=== PATIENT | male | born 1985 | race Caucasian/White ===

== ENCOUNTER 2018-10-12 11:21 | Emergency (ER) | payer MEDICAID ==
[~2018-10-12] VITALS: Ht 180.3 cm; Wt 81.0 kg
[2018-10-12 12:00] VITALS: BP 131/81
== END 2018-10-12 12:02 ==
LOC: ER 11:21
DX: Z02.89 Encounter for other administrative examinations (principal); F20.9 Schizophrenia, unspecified; Z56.0 Unemployment, unspecified
CPT/HCPCS: 99283

== ENCOUNTER 2023-08-02 16:48 | Emergency (ER) | payer MEDICAID ==
[~2023-08-02] VITALS: Ht 180.3 cm; Wt 87.7 kg
[2023-08-02 17:37] LABS: BASOPHILS # (AUTO) 0.2 X10'3 (0-0.2); EOSINOPHILS # (AUTO) 0.3 X10'3 (0-0.9); EOSINOPHILS % (AUTO) 2.7 % (0-6); HEMATOCRIT 45.4 % (42.0-52.0); HEMOGLOBIN 15.8 g/dl (14.0-17.9); LYMPHOCYTES # (AUTO) 1.4 X10'3 (1.1-4.8); LYMPHOCYTES % (AUTO) 13.5 % (21-51); MEAN CORPUSCULAR HEMOGLOBIN 32.1 PG (27.0-31.0); MEAN CORPUSCULAR HGB CONC 34.7 g/dL (33.0-36.5); MEAN CORPUSCULAR VOLUME 92.3 FL (78-98); MEAN PLATELET VOLUME 9.1 FL (7.4-10.4); MONOCYTES # (AUTO) 1.3 X10'3 (0-0.9); MONOCYTES % (AUTO) 11.9 % (2-12); NEUTROPHILS # (AUTO) 7.4 X10'3 (1.8-7.7); NEUTROPHILS % (AUTO) 69.9 % (42-75); PLATELET COUNT 283 X10'3 (140-440); RED BLOOD COUNT 4.92 X10'6 (4.70-6.10); RED CELL DISTRIBUTION WIDTH 12.7 % (11.5-14.5); WHITE BLOOD COUNT 10.6 X10'3 (4.5-11.0)
[2023-08-02 17:42] LABS: ALANINE AMINOTRANSFERASE 39 U/L (12-78); ALBUMIN 3.8 G/DL (3.4-5.0); ALKALINE PHOSPHATASE 105 IU/L (46-116); ANION GAP 13 (8-16); ASPARTATE AMINO TRANSFERASE 19 U/L (10-37); BILIRUBIN,TOTAL 0.3 MG/DL (0.1-1.0); BLOOD UREA NITROGEN 10 MG/DL (7-18); BUN/CREATININE RATIO 11.5 (10.0-20.0); CALCIUM 8.8 MG/DL (8.5-10.1); CHLORIDE 105 MMOL/L (99-107); CREATININE 0.87 MG/DL (0.60-1.10); GLUCOSE 108 MG/DL (70-104); POTASSIUM 4.1 MMOL/L (3.5-5.1); SODIUM 141 MMOL/L (135-145); TOTAL CARBON DIOXIDE 22.8 MMOL/L (24-32); TOTAL PROTEIN 7.5 G/DL (6.4-8.2); eGFR > 90 ML/MIN
[2023-08-02 17:46] LABS: ETHANOL < 10 MG/DL (<10)
[2023-08-02 18:27] LABS: THYROID STIMULATING HORMONE 1.63 ulU/ml (0.34-4.50)
--- NOTE | 2023-08-02 18:33 | NUR ---
The patient brought in via EMS from [facility]. He was released from [facility] earlier in the day. He is LPS conserved. He has a history of schizophrenia. He is pleasant and cooperative.
[2023-08-02 18:53] LABS: URINE AMPHETAMINE SCREEN NEGATIVE (Neg); URINE BARBITUATE SCREEN NEGATIVE (Neg); URINE BENZODIAZEPINES SCREEN NEGATIVE (Neg); URINE CANNABINOID SCREEN NEGATIVE (Neg); URINE COCAINE SCREEN NEGATIVE (Neg); URINE METHADONE SCREEN NEGATIVE (Neg); URINE OPIATE SCREEN NEGATIVE (Neg); URINE PHENCYCLIDINE SCREEN NEGATIVE (Neg)
--- NOTE | 2023-08-02 18:54 | NUR ---
Per [facility] records the patient is on high doses of Clozaril. Contacted [facility] unit they state the patient is on risperdal. So at this point is unclear what the patient has been receiving at this time.
--- NOTE | 2023-08-02 19:12 | NUR ---
PACKET SENT TO [facility]
[2023-08-02] MEDS ORDERED: COLACE PO (19:23)
[2023-08-02] MEDS ORDERED: RISP4TAB7 PO (19:23)
[2023-08-02] MEDS ORDERED: LACT10SO3 PO (19:23)
--- NOTE | 2023-08-02 20:24 | NUR ---
Nurse to nurse with [employer], Rajani.
[2023-08-02] MEDS ORDERED: risperiDONE 2mg tablet PO SCH (21:00)
--- NOTE | 2023-08-02 21:35 | NUR ---
The patient has been accepted at [facility]. Per [facility] he will be transported in the am.
--- NOTE | 2023-08-02 22:56 | NUR ---
The patient appears to be sleeping
--- NOTE | 2023-08-03 00:58 | NUR ---
The patient appears to be sleeping
--- NOTE | 2023-08-03 02:58 | NUR ---
The patient appears to be sleeping
--- NOTE | 2023-08-03 05:03 | NUR ---
The patient appears to be sleeping
--- NOTE | 2023-08-03 06:30 | NUR ---
Pt is lying in bed on his left side, he appears to be sleeping, respirations regular.
[2023-08-03] MEDS ORDERED: lactulose 20gm/30ml cup PO SCH (08:00)
[2023-08-03] MEDS ORDERED: docusate sod 250mg capsule PO SCH (08:00)
--- NOTE | 2023-08-03 08:25 | NUR ---
Halima from [facility] called to report that pt should be picked up around 0915 this morning.
--- NOTE | 2023-08-03 08:38 | NUR ---
Pt is awake sitting up on the side of his bed eating breakfast.
--- NOTE | 2023-08-03 09:24 | NUR ---
[facility] otr flatbed driver here to transport pt to [facility]. Pt ambulated off the unit accompanied by otr flatbed driver and security, all belongings sent with patient.
[2023-08-03 09:42] VITALS: BP 94/67; PULSE 74; RESP 18; TEMP 97.4; O2SAT 97
== END 2023-08-03 09:24 | disposition still patient (30) ==
LOC: ER 16:48
DX: F79 Unspecified intellectual disabilities (principal); Z20.822 Contact with and (suspected) exposure to COVID-19; F20.9 Schizophrenia, unspecified; F12.10 Cannabis abuse, uncomplicated
CPT/HCPCS: 36415; 80053; 80305; 80320; 84443; 85025; 87811; 99285